=== PATIENT | female | born 1950 | race African-American/Black ===

== ENCOUNTER 2018-03-21 06:28 | Day surgery (SDC) | payer OTHER ==
[2018-03-12 12:35] VITALS: BMI 30.6
[2018-03-21] MEDS ORDERED: MIDAZOLAM HCL 2 MG/2 ML SINGLE DOSE VIAL ONE (06:35)
[2018-03-21] MEDS ORDERED: ROPIVACAINE HCL 0.5% 30ML VIAL ONE (06:36)
[2018-03-21] MEDS ORDERED: EPINEPHrine 1:1,000 1 MG/1 ML - 30ML VIAL (INJECTION) ONE (07:03)
[2018-03-21] MEDS ORDERED: PROPOFOL 20 ML ONE ×2 (07:10)
[2018-03-21] MEDS ORDERED: CLINDAMYCIN PHOSPHATE 600 MG/4 ML VIAL ONE (08:06)
[2018-03-21] MEDS ORDERED: BUPIVACAINE HCL/PF 2.5 MG/ML - 30 ML VIAL IJ ONE (08:09)
[2018-03-21] MEDS ORDERED: ePHEDrine SULFATE 50 MG/1 ML AMPULE ONE (08:28)
[2018-03-21] MEDS ORDERED: ONDANSETRON 4 MG/2 ML VIAL IVPUSH PRN (08:53)
[2018-03-21] MEDS ORDERED: oxyCODONE HCL 5 MG TABLET PO PRN (08:53)
[2018-03-21] MEDS ORDERED: LACTATED RINGERS SOLUTION 1,000 ML IV SCH (09:00)
[2018-03-21 09:45] VITALS: TEMP 97.6
--- NOTE | 2018-03-21 10:47 | OP ---
DATE OF OPERATION: 03/21/2018 SURGEON: Anuj Mak MD ASSISSTANT: AYDEE Spence PREOPERATIVE DIAGNOSES: 1. Right shoulder rotator cuff tear. 2. Right shoulder adhesive capsulitis. 3. Right shoulder impingement syndrome. 4. Right shoulder acromioclavicular joint disease. 5. Right shoulder superior labral tear, anterior-posterior synovitis. POSTOPERATIVE DIAGNOSES: 1. Right shoulder rotator cuff tear. 2. Right shoulder adhesive capsulitis. 3. Right shoulder impingement syndrome. 4. Right shoulder acromioclavicular joint disease. 5. Right shoulder superior labral tear, anterior-posterior synovitis. PROCEDURE: 1. Right shoulder arthroscopy with arthroscopic rotator cuff repair, CPT code 00483. 2. Right shoulder arthroscopy with lysis and resection of adhesions, CPT code 2925. 3. Right shoulder arthroscopy with subacromial decompression, CPT code 2926. 4. Right shoulder arthroscopy with resection of distal clavicle, acromioclavicular joint, CPT code 2924. 5. Right shoulder arthroscopy with debridement , CPT code 2923. MEDICAL NECESSITY FOR INCIDENT RESPONSE MANAGER: AYDEE Spence, was present during the case, and his assistance was medically necessary. He assisted with use of the camera, implanting the implants, and positioning of the arm. Without his assistance, the case could not have been performed. FINDINGS: 1. Glenohumeral synovitis with adhesions anteriorly. 2. Anterior and posterior labral fraying. 3. Superior labral tear anterior and posterior type 1. 4. Full-thickness supraspinatus rotator cuff tear extending to the infraspinatus. 5. Type 2 acromion with anterior spurring.. 6. Inferior spurs at the clavicle with acromioclavicular joint disease. 7. Thickened scar tissue in the subacromial space with thickened scar tissue and adhesions. REPAIR TYPE: Three mattress sutures were placed into the supraspinatus tendon and secured to a bleeding bone bed using the Opus technique. DESCRIPTION OF PROCEDURE: Informed consent was obtained. The patient was taken to the operating room, where the upper extremity was prepped and draped in a sterile fashion. The shoulder was manipulated for a full range of motion. A posterior incision portal was made and directed to the glenohumeral joint. Under direct visualization, an anterior incision and portal was made. Extensive synovitis, as well as chondral injuries throughout the glenohumeral joint were debrided and removed. Any identified labral injuries, including the superior labral tear, anterior and posterior, and anterior labrum torn portions, were removed as well. The rotator cuff was visualized and noted to have a full-thickness tear. The edges were debrided. The posterior incision portal was redirected to the subacromial space where a lateral incision portal was made. Excessive and thickened scar tissue noted throughout the subacromial space, including bursal and scar tissue, were removed. The type 2 acromion was converted into a flattened type 1 using a bur for subacromial decompression. The distal inferior spur at the distal clavicle was also debrided with the use of an accessory portal in the acromioclavicular joint. The edges of the rotator cuff were identified. Sutures were placed into the rotator cuff and secured using anchors through the greater tuberosity. Prior to securing, a bleeding bed was made using a small bur, creating a bleeding surface of the rotator cuff insertion. The shoulder was then drained, a single suture was placed in all portals, a sterile dressing was placed and the patient was transferred to the recovery room without complication. The PA listed above was present and assisted at surgery. Their presence was absolutely medically necessary for the completion of the procedure. They helped hold the arthroscopy, pass instruments (and implants when indicated) and the procedure could not have been completed without their assistance. ANUJ MAK M.D. [id number]
[2018-03-21 10:51] VITALS: BP 130/70; PULSE 65
--- NOTE | 2018-03-25 17:22 | PATH ---
Surgical Pathology Report Patient Name: CARINA ALBERT Med. Rec. #: [id number] /Age/Gender: 1950 (Age: 68) / F Account: [id number] Location: [facility] AMBULATORY Taken: 03/21/2018 Received: 03/21/2018 Reported: 03/25/2018 Physicians: Rico Mccabe M.D. Specimen(s) Received RIGHT SHOULDER SHAVINGS Clinical History Right shoulder rotator cuff tear Final Diagnosis SHOULDER SHAVINGS, RIGHT, ROTATOR CUFF REPAIR: FRAGMENTS OF BENIGN CARTILAGE, DENSE FIBROCONNECTIVE TISSUE, ADIPOSE TISSUE, SYNOVIUM, AND SKELETAL MUSCLE. Electronically Signed Deisy Vera M.D. Gross Description Received in formalin, labeled "right shoulder shavings," is a 5.2 x 4.0 x 0.3 cm. aggregate of herrera-yellow soft tissue fragments. A ict sales representative portion is submitted in one cassette. 03/24/201803/24/2018
== END 2018-03-21 10:51 | disposition home or self-care (01) ==
LOC: FASU 06:28
PROVIDERS: ATTEND Orthopaedic Surgery
PROC: 0RNJ4ZZ Release Right Shoulder Joint, Percutaneous Endoscopic Approach (ICD-10-PCS; 2018-03-21)
PROC: 0PB94ZZ Excision of Right Clavicle, Percutaneous Endoscopic Approach (ICD-10-PCS; 2018-03-21)
PROC: 0RBJ4ZZ Excision of Right Shoulder Joint, Percutaneous Endoscopic Approach (ICD-10-PCS; 2018-03-21)
PROC: 0LQ14ZZ Repair Right Shoulder Tendon, Percutaneous Endoscopic Approach (ICD-10-PCS; principal; 2018-03-21 08:15)
DX: M75.121 Complete rotator cuff tear or rupture of right shoulder, not specified as traumatic (principal); M75.01 Adhesive capsulitis of right shoulder; M75.41 Impingement syndrome of right shoulder; M19.011 Primary osteoarthritis, right shoulder; M24.111 Other articular cartilage disorders, right shoulder; M65.811 Other synovitis and tenosynovitis, right shoulder
CPT/HCPCS: 88304-TC; 94760

== ENCOUNTER 2024-03-14 06:35 | Emergency (ER) | payer OTHER ==
[2024-03-14 06:51] VITALS: BP 164/64; PULSE 90; RESP 20; TEMP 99.2; BMI 26.4
[2024-03-14] MEDS ORDERED: ACETAMINOPHEN INJECTION 100 ML ONE (08:10)
[2024-03-14] MEDS ORDERED: FAMOTIDINE 20 MG/50 ML IVPB 20 MG/50 ML MG IVPB ONE (08:10)
[2024-03-14] MEDS ORDERED: ONDANSETRON 4 MG/2 ML VIAL ONE (08:10)
[2024-03-14 08:15] LABS: BASO % 0.8 % (0-2.0); HEMATOCRIT 43.7 % (32.4-45.2); HEMOGLOBIN 14.1 GM/dL (10.7-15.3); LYMPH % 14.9 % (8-40); MCH 27.4 pg (25.7-33.7); MCHC 32.2 g/dl (32.0-36.0); MEAN CELL VOLUME 85.3 fl (80-96); MEAN PLT VOLUME 9.1 fl (7.5-11.1); MONO % 2.5 % (3.8-10.2); NEUT % 81.8 % (42.8-82.8); PLATELET COUNT 235 10^3/uL (134-434); RBC 5.12 M/mm3 (3.60-5.2); RDW 13.4 % (11.6-15.6); WHITE BLOOD COUNT 5.5 K/mm3 (4.0-10.0)
[2024-03-14 08:17] LABS: VENOUS BASE EXCESS -1.9 mmol/L (-2-2); VENOUS O2 SATURATION 75.2 % (70-80); VENOUS PCO2 44.8 mmHg (38-52); VENOUS PH 7.347 (7.310-7.410)
[2024-03-14] MEDS: SODIUM CHLORIDE 1,000 ML IV STA (08:19)
[2024-03-14] MEDS: ACETAMINOPHEN 1000 MG/100 ML BAG IVPB ONE (08:19)
[2024-03-14] MEDS: FAMOTIDINE 20 MG/50 ML IVPB 20 MG/50 ML MG IVPB ONE (08:20)
[2024-03-14] MEDS: ONDANSETRON 4 MG/2 ML VIAL IVPUSH ONE (08:20)
[2024-03-14 08:41] LABS: POTASSIUM 4.2 mmol/L (3.5-5.1)
[2024-03-14 08:42] LABS: CALCIUM 9.9 mg/dL (8.5-10.1)
[2024-03-14 08:43] LABS: ALBUMIN 4.1 g/dl (3.4-5.0); BLOOD UREA NITROGEN 9.1 mg/dL (7-18); MAGNESIUM 1.9 mg/dL (1.8-2.4)
[2024-03-14 08:46] LABS: CREATININE 0.6 mg/dL (0.55-1.3)
[2024-03-14 08:48] LABS: BILIRUBIN,TOTAL 0.6 mg/dL (0.2-1); TOT PROT 7.2 g/dl (6.4-8.2)
[2024-03-14] MEDS ORDERED: METOCLOPRAMIDE HCL INJECTION 10 MG/2 ML VIAL ONE (09:59)
[2024-03-14] MEDS: METOCLOPRAMIDE HCL INJECTION 10 MG/2 ML VIAL IVPUSH ONE (10:07)
== END 2024-03-14 10:56 | disposition home or self-care (01) ==
LOC: JER 06:35
PROC: 3E033GC Introduction of Other Therapeutic Substance into Peripheral Vein, Percutaneous Approach (ICD-10-PCS; principal; 2024-03-14)
PROC: 3E033NZ Introduction of Analgesics, Hypnotics, Sedatives into Peripheral Vein, Percutaneous Approach (ICD-10-PCS; 2024-03-14)
PROC: 3E033GC Introduction of Other Therapeutic Substance into Peripheral Vein, Percutaneous Approach (ICD-10-PCS; 2024-03-14)
PROC: 3E033GC Introduction of Other Therapeutic Substance into Peripheral Vein, Percutaneous Approach (ICD-10-PCS; 2024-03-14)
DX: R11.2 Nausea with vomiting, unspecified (principal); R19.7 Diarrhea, unspecified; R10.13 Epigastric pain; Z20.822 Contact with and (suspected) exposure to COVID-19
CPT/HCPCS: 0241U-QW; 36415; 80053; 82803; 83735; 84484; 85025; 93005; 93010; 99284-25; J0131